=== PATIENT | male | born 1970 | race Two or more races ===

== ENCOUNTER 2022-09-04 12:45 | Inpatient (IN) | payer OTHER ==
[2022-09-04 13:47] VITALS: BMI 26.5
[2022-09-04] MEDS ORDERED: MAGNESIUM CITRATE 300 ML BOTTLE PO PRN (16:07)
[2022-09-04] MEDS ORDERED: NICOTINE 10 MG CARTRIDGE (INHALER) IH PRN (16:07)
[2022-09-04] MEDS ORDERED: ACETAMINOPHEN 325 MG TABLET (FP) PO PRN (16:07)
[2022-09-04] MEDS ORDERED: BISMUTH SUBSALICYLATE 524 MG/30 ML PO PRN (16:07)
[2022-09-04] MEDS ORDERED: NALOXONE HCL (KLOXXADO) 8 MG SPRAY NS PRN (16:07)
[2022-09-04] MEDS ORDERED: BENZOCAINE/MENTHOL (CHLORASEPTIC ) LOZENGE MM PRN (16:07)
[2022-09-04] MEDS ORDERED: LOPERAMIDE HCL 2 MG CAPSULE PO PRN (16:07)
[2022-09-04] MEDS ORDERED: MAG HYDROX/AL HYDROX/SIMETH 30 ML UNIT-DOSE CUP PO PRN (16:07)
[2022-09-04] MEDS ORDERED: ONDANSETRON *ODT* 4 MG TABLET SL PRN (16:07)
[2022-09-04] MEDS ORDERED: chlordiazePOXIDE HCL 25 MG CAPSULE PO PRN (16:07)
[2022-09-04] MEDS ORDERED: MAGNESIUM HYDROX 2400MG/30ML ORAL SUSPENSION 30 ML CUP PO PRN (16:07)
[2022-09-04] MEDS ORDERED: DICYCLOMINE HCL 10 MG CAPSULE PO PRN (16:07)
[2022-09-04] MEDS ORDERED: chlordiazePOXIDE HCL 25 MG CAPSULE PO SCH (17:00)
[2022-09-04] MEDS: ACETAMINOPHEN 325 MG TABLET (FP) PO PRN (18:35)
[2022-09-04] MEDS: PRENATAL VITAMINS W/ FOLIC ACID TABLET (FP) PO SCH (18:35)
[2022-09-04] MEDS: chlordiazePOXIDE HCL 25 MG CAPSULE PO SCH ×2 (18:41→22:14)
[2022-09-04] MEDS: THIAMINE HCL 100 MG TABLET (FP) PO SCH (22:13)
[2022-09-04] MEDS: MELATONIN 5 MG TABLETS PO SCH (22:13)
[2022-09-04] MEDS: hydrOXYzine PAMOATE 25 MG CAPSULE (FP) PO PRN (22:13)
[2022-09-04] MEDS: METHOCARBAMOL 500 MG TABLET PO PRN (22:13)
[2022-09-05] MEDS: chlordiazePOXIDE HCL 25 MG CAPSULE PO SCH ×4 (05:12→22:03)
[2022-09-05] MEDS: METHOCARBAMOL 500 MG TABLET PO PRN ×2 (05:14→22:05)
[2022-09-05] MEDS: hydrOXYzine PAMOATE 25 MG CAPSULE (FP) PO PRN ×2 (05:15→22:05)
[2022-09-05] MEDS: ACETAMINOPHEN 325 MG TABLET (FP) PO PRN (05:15)
[2022-09-05] MEDS: PRENATAL VITAMINS W/ FOLIC ACID TABLET (FP) PO SCH (10:12)
[2022-09-05 12:02] LABS: HEMATOCRIT 38.8 % (35.4-49); HEMOGLOBIN 13.2 GM/dL (11.7-16.9); MCH 34.2 pg (25.7-33.7); MCHC 34.1 g/dl (32.0-35.9); MEAN CELL VOLUME 100.4 fl (80-96); MEAN PLT VOLUME 9.6 fl (7.5-11.1); PLATELET COUNT 115 10^3/uL (134-434); RBC 3.87 M/mm3 (4.00-5.60); RDW 14.5 % (11.9-15.9)
[2022-09-05 12:14] LABS: ALBUMIN 3.5 g/dl (3.4-5.0); BLOOD UREA NITROGEN 4.6 mg/dL (7-18); CALCIUM 9.2 mg/dL (8.5-10.1)
[2022-09-05 12:18] LABS: CREATININE 0.5 mg/dL (0.55-1.3)
[2022-09-05 12:20] LABS: BILIRUBIN,TOTAL 1.6 mg/dL (0.2-1); TOT PROT 8.2 g/dl (6.4-8.2)
[2022-09-05] MEDS: IBUPROFEN 400 MG TABLET (FP) PO PRN (17:56)
[2022-09-05] MEDS: THIAMINE HCL 100 MG TABLET (FP) PO SCH (22:04)
[2022-09-05] MEDS: MELATONIN 5 MG TABLETS PO SCH (22:04)
[2022-09-06] MEDS: chlordiazePOXIDE HCL 25 MG CAPSULE PO SCH ×4 (05:25→22:13)
[2022-09-06] MEDS: IBUPROFEN 600 MG TABLET (FP) PO PRN ×2 (05:28→10:40)
[2022-09-06] MEDS ORDERED: POTASSIUM CHLORIDE TABS 20 MEQ TABLET.ER (FP) PO ONE ×2 (08:21→10:45)
[2022-09-06] MEDS: METHOCARBAMOL 500 MG TABLET PO PRN ×2 (10:37→22:13)
[2022-09-06] MEDS: PRENATAL VITAMINS W/ FOLIC ACID TABLET (FP) PO SCH (10:38)
[2022-09-06] MEDS: MELATONIN 5 MG TABLETS PO SCH (22:13)
[2022-09-06] MEDS: THIAMINE HCL 100 MG TABLET (FP) PO SCH (22:13)
[2022-09-06] MEDS: hydrOXYzine PAMOATE 25 MG CAPSULE (FP) PO PRN (22:14)
[2022-09-07] MEDS ORDERED: chlordiazePOXIDE HCL 10 MG CAPSULE PO PRN
[2022-09-07] MEDS: chlordiazePOXIDE HCL 10 MG CAPSULE PO SCH ×4 (05:18→22:26)
[2022-09-07] MEDS: PRENATAL VITAMINS W/ FOLIC ACID TABLET (FP) PO SCH (10:21)
[2022-09-07] MEDS: ACETAMINOPHEN 325 MG TABLET (FP) PO PRN (17:50)
[2022-09-07] MEDS: MELATONIN 5 MG TABLETS PO SCH (22:24)
[2022-09-07] MEDS: METHOCARBAMOL 500 MG TABLET PO PRN (22:25)
[2022-09-07] MEDS: THIAMINE HCL 100 MG TABLET (FP) PO SCH (22:25)
[2022-09-07] MEDS: hydrOXYzine PAMOATE 25 MG CAPSULE (FP) PO PRN (22:25)
[2022-09-08] MEDS: chlordiazePOXIDE HCL 10 MG CAPSULE PO SCH ×2 (05:57→17:45)
[2022-09-08] MEDS: IBUPROFEN 400 MG TABLET (FP) PO PRN (06:00)
[2022-09-08] MEDS: PRENATAL VITAMINS W/ FOLIC ACID TABLET (FP) PO SCH (10:13)
[2022-09-08] MEDS: ACETAMINOPHEN 325 MG TABLET (FP) PO PRN (10:14)
[2022-09-08] MEDS: hydrOXYzine PAMOATE 25 MG CAPSULE (FP) PO PRN (22:26)
[2022-09-08] MEDS: MELATONIN 5 MG TABLETS PO SCH (22:26)
[2022-09-08] MEDS: THIAMINE HCL 100 MG TABLET (FP) PO SCH (22:26)
[2022-09-08] MEDS: METHOCARBAMOL 500 MG TABLET PO PRN (22:26)
[2022-09-09] MEDS ORDERED: chlordiazePOXIDE HCL 10 MG CAPSULE PO ONE (05:00)
[2022-09-09] MEDS: IBUPROFEN 600 MG TABLET (FP) PO PRN (06:18)
[2022-09-09] MEDS: METHOCARBAMOL 500 MG TABLET PO PRN (06:20)
[2022-09-09 06:36] VITALS: RESP 16
[2022-09-09 09:08] VITALS: BP 94/66; PULSE 87; TEMP 97.3
[2022-09-09] MEDS: PRENATAL VITAMINS W/ FOLIC ACID TABLET (FP) PO SCH (10:08)
== END 2022-09-09 12:08 | disposition other institution (70) | DRG 775 ==
LOC: YASAS 12:45 → Y3N 17:36
PROVIDERS: ADMIT Allergy & Immunology; ATTEND Surgery
PROC: HZ2ZZZZ Detoxification Services for Substance Abuse Treatment (ICD-10-PCS; principal; 2022-09-04)
DX: F10.230 Alcohol dependence with withdrawal, uncomplicated (principal); F33.2 Major depressive disorder, recurrent severe without psychotic features; E87.6 Hypokalemia; G89.29 Other chronic pain; R94.5 Abnormal results of liver function studies
CPT/HCPCS: 36415; 71046-TC-FY; 80053; 84132; 85027; 86780; C9803-CS; U0003; U0005

== ENCOUNTER 2022-09-09 12:04 | Inpatient (IN) | payer OTHER ==
[2022-09-09] MEDS ORDERED: P-EPHED 60MG/TRIPROLIDI 2.5MG TABLET PO PRN (14:01)
[2022-09-09] MEDS ORDERED: MAG HYDROX/AL HYDROX/SIMETH 30 ML UNIT-DOSE CUP PO PRN (14:01)
[2022-09-09] MEDS ORDERED: MAGNESIUM HYDROX 2400MG/30ML ORAL SUSPENSION 30 ML CUP PO PRN (14:01)
[2022-09-09] MEDS ORDERED: MAGNESIUM CITRATE 300 ML BOTTLE PO PRN (14:01)
[2022-09-09] MEDS ORDERED: BENZOCAINE/MENTHOL (CHLORASEPTIC ) LOZENGE MM PRN (14:01)
[2022-09-09] MEDS ORDERED: IBUPROFEN 400 MG TABLET (FP) PO PRN (14:01)
[2022-09-09] MEDS ORDERED: guaiFENesin 200 MG/10 ML 10 ML UNIT-DOSE CUPS PO PRN (14:01)
[2022-09-09] MEDS ORDERED: LOPERAMIDE HCL 2 MG CAPSULE PO PRN (14:01)
[2022-09-09] MEDS: THIAMINE HCL 100 MG TABLET (FP) PO SCH (21:15)
[2022-09-09] MEDS: MELATONIN 5 MG TABLETS PO SCH (21:15)
[2022-09-10] MEDS: PRENATAL VITAMINS W/ FOLIC ACID TABLET (FP) PO SCH (09:57)
[2022-09-10] MEDS ORDERED: PNEUMOC 20-VAL CONJ-DIP CRM/PF 0.5 ML SYRINGE IM ONE (12:00)
[2022-09-10] MEDS ORDERED: FLU VACC QS2022-23(6MOS UP)/PF 60 MCG/0.5 ML SYRINGE IM ONE (12:00)
[2022-09-10 16:12] LABS: CALCIUM 9.8 mg/dL (8.5-10.1)
[2022-09-10 16:14] LABS: ALBUMIN 3.6 g/dl (3.4-5.0)
[2022-09-10 16:15] LABS: CREATININE 0.5 mg/dL (0.55-1.3)
[2022-09-10 16:18] LABS: BILIRUBIN,TOTAL 0.6 mg/dL (0.2-1); TOT PROT 8.2 g/dl (6.4-8.2)
[2022-09-10 17:07] LABS: HIV INTERPRETATION NEGATIVE (NEGATIVE)
[2022-09-10] MEDS: MELATONIN 5 MG TABLETS PO SCH (21:08)
[2022-09-10] MEDS: THIAMINE HCL 100 MG TABLET (FP) PO SCH (21:08)
[2022-09-10] MEDS: hydrOXYzine PAMOATE 25 MG CAPSULE (FP) PO PRN (21:08)
[2022-09-11] MEDS: PRENATAL VITAMINS W/ FOLIC ACID TABLET (FP) PO SCH (10:21)
[2022-09-11] MEDS: SERTRALINE HCL 25 MG TABLET (FP) PO SCH (11:22)
[2022-09-11] MEDS: THIAMINE HCL 100 MG TABLET (FP) PO SCH (21:13)
[2022-09-11] MEDS: MELATONIN 5 MG TABLETS PO SCH (21:13)
[2022-09-11] MEDS: QUEtiapine FUMARATE 25 MG TABLET PO SCH (21:13)
[2022-09-11] MEDS: hydrOXYzine PAMOATE 25 MG CAPSULE (FP) PO PRN (21:13)
[2022-09-12] MEDS: SERTRALINE HCL 25 MG TABLET (FP) PO SCH (09:54)
[2022-09-12] MEDS: PRENATAL VITAMINS W/ FOLIC ACID TABLET (FP) PO SCH (09:54)
[2022-09-12] MEDS: THIAMINE HCL 100 MG TABLET (FP) PO SCH (21:23)
[2022-09-12] MEDS: QUEtiapine FUMARATE 25 MG TABLET PO SCH (21:23)
[2022-09-12] MEDS: hydrOXYzine PAMOATE 25 MG CAPSULE (FP) PO PRN (21:23)
[2022-09-12] MEDS: MELATONIN 5 MG TABLETS PO SCH (22:17)
[2022-09-13] MEDS: SERTRALINE HCL 25 MG TABLET (FP) PO SCH (10:13)
[2022-09-13] MEDS: PRENATAL VITAMINS W/ FOLIC ACID TABLET (FP) PO SCH (10:13)
[2022-09-13] MEDS: THIAMINE HCL 100 MG TABLET (FP) PO SCH (21:15)
[2022-09-13] MEDS: QUEtiapine FUMARATE 25 MG TABLET PO SCH (21:15)
[2022-09-13] MEDS: MELATONIN 5 MG TABLETS PO SCH (21:15)
[2022-09-13] MEDS: hydrOXYzine PAMOATE 25 MG CAPSULE (FP) PO PRN (21:15)
[2022-09-14] MEDS: SERTRALINE HCL 25 MG TABLET (FP) PO SCH (10:10)
[2022-09-14] MEDS: PRENATAL VITAMINS W/ FOLIC ACID TABLET (FP) PO SCH (10:10)
[2022-09-14] MEDS: THIAMINE HCL 100 MG TABLET (FP) PO SCH (21:03)
[2022-09-14] MEDS: MELATONIN 5 MG TABLETS PO SCH (21:03)
[2022-09-14] MEDS: QUEtiapine FUMARATE 25 MG TABLET PO SCH (21:03)
[2022-09-14] MEDS: hydrOXYzine PAMOATE 25 MG CAPSULE (FP) PO PRN (21:04)
[2022-09-15] MEDS: SERTRALINE HCL 25 MG TABLET (FP) PO SCH (09:43)
[2022-09-15] MEDS: PRENATAL VITAMINS W/ FOLIC ACID TABLET (FP) PO SCH (09:43)
[2022-09-15] MEDS: MELATONIN 5 MG TABLETS PO SCH (21:10)
[2022-09-15] MEDS: THIAMINE HCL 100 MG TABLET (FP) PO SCH (21:10)
[2022-09-15] MEDS: hydrOXYzine PAMOATE 25 MG CAPSULE (FP) PO PRN (21:11)
[2022-09-15] MEDS: QUEtiapine FUMARATE 25 MG TABLET PO SCH (21:12)
[2022-09-16] MEDS: SERTRALINE HCL 25 MG TABLET (FP) PO SCH (09:44)
[2022-09-16] MEDS: PRENATAL VITAMINS W/ FOLIC ACID TABLET (FP) PO SCH (09:44)
[2022-09-16] MEDS: QUEtiapine FUMARATE 25 MG TABLET PO SCH (21:24)
[2022-09-16] MEDS: ACETAMINOPHEN 325 MG TABLET (FP) PO PRN (21:24)
[2022-09-16] MEDS: hydrOXYzine PAMOATE 25 MG CAPSULE (FP) PO PRN (21:24)
[2022-09-16] MEDS: THIAMINE HCL 100 MG TABLET (FP) PO SCH (21:24)
[2022-09-16] MEDS: MELATONIN 5 MG TABLETS PO SCH (21:25)
[2022-09-17] MEDS: SERTRALINE HCL 25 MG TABLET (FP) PO SCH (10:12)
[2022-09-17] MEDS: PRENATAL VITAMINS W/ FOLIC ACID TABLET (FP) PO SCH (10:12)
[2022-09-17] MEDS: THIAMINE HCL 100 MG TABLET (FP) PO SCH (21:12)
[2022-09-17] MEDS: MELATONIN 5 MG TABLETS PO SCH (21:12)
[2022-09-17] MEDS: hydrOXYzine PAMOATE 25 MG CAPSULE (FP) PO PRN (21:13)
[2022-09-17] MEDS: QUEtiapine FUMARATE 25 MG TABLET PO SCH (21:13)
[2022-09-18] MEDS: SERTRALINE HCL 25 MG TABLET (FP) PO SCH (09:45)
[2022-09-18] MEDS: ACETAMINOPHEN 325 MG TABLET (FP) PO PRN (09:45)
[2022-09-18] MEDS: PRENATAL VITAMINS W/ FOLIC ACID TABLET (FP) PO SCH (09:45)
[2022-09-18] MEDS ORDERED: LACTULOSE 20 GM/30 ML UDC (FOR ORAL USE ONLY) PO PRN (10:48)
[2022-09-18] MEDS: LACTULOSE 20 GM/30 ML UDC (FOR ORAL USE ONLY) PO SCH ×2 (13:07→21:12)
[2022-09-18] MEDS: hydrOXYzine PAMOATE 25 MG CAPSULE (FP) PO PRN (21:12)
[2022-09-18] MEDS: QUEtiapine FUMARATE 25 MG TABLET PO SCH (21:12)
[2022-09-18] MEDS: MELATONIN 5 MG TABLETS PO SCH (21:12)
[2022-09-18] MEDS: THIAMINE HCL 100 MG TABLET (FP) PO SCH (21:12)
[2022-09-19] MEDS: LACTULOSE 20 GM/30 ML UDC (FOR ORAL USE ONLY) PO SCH ×3 (06:19→21:15)
[2022-09-19] MEDS: PRENATAL VITAMINS W/ FOLIC ACID TABLET (FP) PO SCH (10:15)
[2022-09-19] MEDS: SERTRALINE HCL 25 MG TABLET (FP) PO SCH (10:15)
[2022-09-19] MEDS: MELATONIN 5 MG TABLETS PO SCH (21:13)
[2022-09-19] MEDS: THIAMINE HCL 100 MG TABLET (FP) PO SCH (21:13)
[2022-09-19] MEDS: hydrOXYzine PAMOATE 25 MG CAPSULE (FP) PO PRN (21:14)
[2022-09-19] MEDS: QUEtiapine FUMARATE 25 MG TABLET PO SCH (21:14)
[2022-09-20] MEDS: LACTULOSE 20 GM/30 ML UDC (FOR ORAL USE ONLY) PO SCH ×3 (06:33→21:32)
[2022-09-20] MEDS: SERTRALINE HCL 25 MG TABLET (FP) PO SCH (09:46)
[2022-09-20] MEDS: PRENATAL VITAMINS W/ FOLIC ACID TABLET (FP) PO SCH (09:46)
[2022-09-20] MEDS: MELATONIN 5 MG TABLETS PO SCH (21:31)
[2022-09-20] MEDS: QUEtiapine FUMARATE 25 MG TABLET PO SCH (21:31)
[2022-09-20] MEDS: THIAMINE HCL 100 MG TABLET (FP) PO SCH (21:31)
[2022-09-20] MEDS: hydrOXYzine PAMOATE 25 MG CAPSULE (FP) PO PRN (21:31)
[2022-09-21] MEDS: LACTULOSE 20 GM/30 ML UDC (FOR ORAL USE ONLY) PO SCH ×3 (06:15→21:13)
[2022-09-21] MEDS: PRENATAL VITAMINS W/ FOLIC ACID TABLET (FP) PO SCH (09:42)
[2022-09-21] MEDS: SERTRALINE HCL 25 MG TABLET (FP) PO SCH (09:42)
[2022-09-21] MEDS: THIAMINE HCL 100 MG TABLET (FP) PO SCH (21:13)
[2022-09-21] MEDS: QUEtiapine FUMARATE 25 MG TABLET PO SCH (21:13)
[2022-09-21] MEDS: hydrOXYzine PAMOATE 25 MG CAPSULE (FP) PO PRN (21:13)
[2022-09-21] MEDS: MELATONIN 5 MG TABLETS PO SCH (21:13)
[2022-09-22] MEDS: LACTULOSE 20 GM/30 ML UDC (FOR ORAL USE ONLY) PO SCH ×3 (06:18→21:16)
[2022-09-22] MEDS: SERTRALINE HCL 25 MG TABLET (FP) PO SCH (09:52)
[2022-09-22] MEDS: PRENATAL VITAMINS W/ FOLIC ACID TABLET (FP) PO SCH (09:52)
[2022-09-22] MEDS: THIAMINE HCL 100 MG TABLET (FP) PO SCH (21:16)
[2022-09-22] MEDS: QUEtiapine FUMARATE 25 MG TABLET PO SCH (21:16)
[2022-09-22] MEDS: MELATONIN 5 MG TABLETS PO SCH (21:16)
[2022-09-23] MEDS: LACTULOSE 20 GM/30 ML UDC (FOR ORAL USE ONLY) PO SCH (06:33)
[2022-09-23 07:04] VITALS: BP 145/78; PULSE 81; RESP 18; TEMP 97.3
[2022-09-23] MEDS: PRENATAL VITAMINS W/ FOLIC ACID TABLET (FP) PO SCH (09:02)
[2022-09-23] MEDS: SERTRALINE HCL 25 MG TABLET (FP) PO SCH (09:03)
== END 2022-09-23 11:26 | disposition home or self-care (01) | DRG 772 ==
LOC: YASAS 12:04 → Y3E 12:06
PROVIDERS: ADMIT Allergy & Immunology; ATTEND Psychiatry & Neurology Pain Medicine
PROC: HZ42ZZZ Group Counseling for Substance Abuse Treatment, Cognitive-Behavioral (ICD-10-PCS; principal; 2022-09-09)
DX: F10.20 Alcohol dependence, uncomplicated (principal); F33.2 Major depressive disorder, recurrent severe without psychotic features; F43.10 Post-traumatic stress disorder, unspecified; R79.89 Other specified abnormal findings of blood chemistry; Z99.89 Dependence on other enabling machines and devices; Z59.01 Sheltered homelessness; Z56.0 Unemployment, unspecified
CPT/HCPCS: 36415; 80053; 82140; 87389; 90677; G0008; Q2036